=== PATIENT | male | born 1945 | race African-American/Black ===

== ENCOUNTER 2018-10-12 14:55 | Inpatient (IN) | payer MEDICARE ==
[~2018-10-12] VITALS: Ht 172.7 cm; Wt 67.1 kg
[2018-10-12 16:36] LABS: BASOPHILS % (AUTO) 0.7 % (0.0-2.0); EOSINOPHILS % (AUTO) 0.9 % (0.0-7.0); HEMATOCRIT 43.6 % (36.7-47.1); HEMOGLOBIN 14.6 g/dL (12.5-16.3); LYMPHOCYTES # (AUTO) 0.6 K/uL (20.0-40.0); LYMPHOCYTES % (AUTO) 14.6 % (20.5-51.5); MEAN CORPUSCULAR HEMOGLOBIN 32.9 uug (23.8-33.4); MEAN CORPUSCULAR HGB CONC 33 g/dL (32.5-36.3); MEAN CORPUSCULAR VOLUME 98.5 fL (73.0-96.2); MONOCYTES # (AUTO) 0.3 K/uL (2.0-10.0); MONOCYTES % (AUTO) 8.3 % (0.0-11.0); NEUTROPHILS % (AUTO) 75.5 % (38.5-71.5); PLATELET COUNT (AUTO) 143 K/uL (152-348); RED BLOOD CELL COUNT(AUTO) 4.43 MIL/uL (4.06-5.63)
[2018-10-12 16:44] LABS: CARBON DIOXIDE 29 mmol/L (21-32); CHLORIDE 105 mmol/L (98-107); CREATININE 1.3 mg/dL (0.6-1.3); ETHANOL < 3 MG/DL (0-0); GLUCOSE 93 mg/dL (74-106); POTASSIUM 3.5 mmol/L (3.5-5.1); UREA NITROGEN, BLOOD 33 mg/dL (7-18)
--- NOTE | 2018-10-12 16:46 | NUR ---
PT VERY AGITATED, CONFUSED, TRIES TO LEAVE THE ER INSPITE OF THE REORIENTATION AND COMFORT MEASURES PROVIDED. CALLED SUMA STRAUSS
--- NOTE | 2018-10-12 16:47 | NUR ---
PT REFUESED TO GO CT. ALREADY TRIED TO CONVINCE, UNSUCCESSFUL.
[2018-10-12 16:58] LABS: ALANINE AMINOTRANSFERASE 47 U/L (16-63); ALKALINE PHOSPHATASE 90 U/L (50-136); ASPARTATE AMINOTRANSFERASE 73 U/L (15-37); BILIRUBIN,DIRECT 0.2 mg/dL (0.0-0.2); BILIRUBIN,TOTAL 0.7 mg/dL (0.2-1.0)
[2018-10-12 16:59] LABS: ACETAMINOPHEN < 2.0 ug/mL (10-30)
[2018-10-12 17:00] LABS: THYROID STIMULATING HORMONE 5.434 mIU/mL (0.358-3.740)
[2018-10-12] MEDS ORDERED: HALOPERIDOL LACTATE 5 MG/1 ML VIAL IM ONE (17:30)
[2018-10-12] MEDS ORDERED: diphenhydrAMINE 50 MG/1 ML VIAL IM ONE (17:30)
[2018-10-12] MEDS ORDERED: LORAZEPAM 2 MG/1 ML VIAL IM ONE (17:30)
--- NOTE | 2018-10-12 17:44 | NUR ---
CODE STRAUSS CLEARED.
--- NOTE | 2018-10-12 18:46 | NUR ---
PT RESTING,AROUSABLE, VSS, ONE TO ONE SITTER AT BED TIME THE WHOLE ER STAY,
[2018-10-12] MEDS ORDERED: LORAZEPAM 2 MG/1 ML VIAL ONE (19:20)
[2018-10-12] MEDS ORDERED: diphenhydrAMINE 50 MG/1 ML VIAL ONE (19:20)
[2018-10-12] MEDS ORDERED: HALOPERIDOL LACTATE 5 MG/1 ML VIAL ONE (19:20)
--- NOTE | 2018-10-12 20:53 | NUR ---
Pt. admitted to TELE, under care of Dr. GRIGGS Belongs List completed
[2018-10-12 21:30] VITALS: BP 100/48
--- NOTE | 2018-10-12 21:30 | NUR ---
ADMITTED 73M DX: AMS/ACS. PATIENT WAS ABLE TO AMBULATE TO BED WITH 2 PERSON ASSIST. WAS UNABLE TO OBTAIN ANY HISTORY DURING ASSESSMENT DUE TO MENTAL STATUS AND PATIENT BEING LETHARGIC. SITTER IS AT BEDSIDE. IV HEPLOCK ON THE LEFT HAND IS INTACT. SAFETY MEASURES INITIATED. BED IS LOW AND LOCKED, CALL LIGHT WITHIN REACH. WILL CONTINUE TO MONITOR.
[2018-10-12] MEDS ORDERED: ONDANSETRON 4 MG/2 ML VIAL IV PRN (23:00)
[2018-10-12] MEDS ORDERED: HYDROCODONE/APAP 5-325MG TABLET PO PRN (23:00)
[2018-10-12] MEDS ORDERED: TEMAZEPAM 15 MG CAPSULE PO PRN (23:00)
[2018-10-12] MEDS ORDERED: MIRALAX 17 GM POWD.PACK PO PRN (23:00)
[2018-10-12] MEDS ORDERED: ACETAMINOPHEN 325 MG TABLET PO PRN (23:00)
[2018-10-13 04:00] VITALS: BP 107/67
[2018-10-13] MEDS: PANTOPRAZOLE SODIUM 40 MG TABLET.DR PO SCH (06:09)
--- NOTE | 2018-10-13 06:49 | NUR ---
PATIENT SLEPT MOST OF SHIFT. NO SIGNS OF ACUTE DISTRESS. WAS ABLE TO AMBULATE TO THE RESTROOM. STILL LETHARGIC AND UNABLE TO ANSWER QUESTIONS ABOUT PMH. SITTER AT BESIDE. SAFETY MEASURES GIVEN.
[2018-10-13 07:43] LABS: BASOPHILS % (AUTO) 0.2 % (0.0-2.0); EOSINOPHILS % (AUTO) 0.8 % (0.0-7.0); HEMATOCRIT 37.8 % (36.7-47.1); HEMOGLOBIN 12.9 g/dL (12.5-16.3); LYMPHOCYTES # (AUTO) 0.5 K/uL (20.0-40.0); LYMPHOCYTES % (AUTO) 14.2 % (20.5-51.5); MEAN CORPUSCULAR HEMOGLOBIN 33.3 uug (23.8-33.4); MEAN CORPUSCULAR HGB CONC 34 g/dL (32.5-36.3); MEAN CORPUSCULAR VOLUME 97.3 fL (73.0-96.2); MONOCYTES # (AUTO) 0.3 K/uL (2.0-10.0); MONOCYTES % (AUTO) 9.4 % (0.0-11.0); NEUTROPHILS # (AUTO) 2.8 K/uL (1.8-8.9); NEUTROPHILS % (AUTO) 75.4 % (38.5-71.5); PLATELET COUNT (AUTO) 125 K/uL (152-348); RED BLOOD CELL COUNT(AUTO) 3.88 MIL/uL (4.06-5.63); WHITE BLOOD COUNT (AUTO) 3.7 K/uL (3.6-10.2)
[2018-10-13] MEDS ORDERED: TEMAZEPAM 7.5 MG CAPSULE PO PRN (07:45)
--- NOTE | 2018-10-13 08:00 | NUR ---
Pt waking up. Pt still groggy but pt alert and oriented x 4. Sitter at bedside for 1:1 2nd to 5150. Awaiting psych consult. Tele SNR. Call light is within reach.
[2018-10-13 08:50] LABS: ALANINE AMINOTRANSFERASE 33 U/L (16-63); ALKALINE PHOSPHATASE 69 U/L (50-136); ASPARTATE AMINOTRANSFERASE 48 U/L (15-37); BILIRUBIN,TOTAL 1.1 mg/dL (0.2-1.0); CARBON DIOXIDE 30 mmol/L (21-32); CHLORIDE 107 mmol/L (98-107); CHOLESTEROL 184 mg/dL (<200); CREATININE 1.1 mg/dL (0.6-1.3); GLUCOSE 86 mg/dL (74-106); HDL CHOLESTEROL 86 mg/dL (40-60); POTASSIUM 3.8 mmol/L (3.5-5.1); TOTAL PROTEIN, SERUM 6.2 g/dL (6.4-8.2); TRIGLYCERIDES 28 MG/DL (30-150); UREA NITROGEN, BLOOD 27 mg/dL (7-18)
[2018-10-13] MEDS: ASPIRIN EC 325 MG TABLET.DR PO SCH (09:05)
--- NOTE | 2018-10-13 16:00 | NUR ---
No renewal on HOLD per psychiatry.
[2018-10-13 16:48] LABS: *BILIRUBIN,URIN NEGATIVE (NEGATIVE); *BLOOD, URINE NEGATIVE (NEGATIVE); *CLARITY,URINE CLEAR (CLEAR); *COLOR,URINE DARK YELLOW (YELLOW); *KETONES,URINE TRACE (NEGATIVE); LEUKOCYTE ESTERASE ,URINE NEGATIVE (NEGATIVE); NITRITE, URINE NEGATIVE (NEGATIVE); UGLUCOSE NEGATIVE (NEGATIVE)
[2018-10-13 17:14] LABS: BACTERIA,URINE FEW /HPF (NONE SEEN); RBC,URINE 0-3 /HPF (0-3); SQUAMOUS EPITHELIAL CELL,UR FEW /HPF (NONE SEEN)
[2018-10-13 17:18] LABS: *AMPHETAMINE, URINE NEGATIVE (NEGATIVE); *BARBITURATE, URINE NEGATIVE (NEGATIVE); *CANNABINOID, URINE NEGATIVE (NEGATIVE); *COCCAINE, URINE NEGATIVE (NEGATIVE); *OPIATE, URINE POSITIVE (NEGATIVE); *PHENCYCLIDINE SCREEN,URINE NEGATIVE (NEGATIVE)
[2018-10-13 19:04] VITALS: BP 97/54
[2018-10-13 20:16] VITALS: BP 99/57
[2018-10-13] MEDS ORDERED: DOCUSATE SODIUM 100 MG CAPSULE PO SCH (21:00)
[2018-10-13] MEDS ORDERED: DOCUSATE SODIUM 250 MG CAPSULE PO SCH (21:00)
[2018-10-14 04:00] VITALS: BP 125/57
[2018-10-14] MEDS: PANTOPRAZOLE SODIUM 40 MG TABLET.DR PO SCH (06:26)
[2018-10-14 06:46] LABS: BASOPHILS % (AUTO) 0.4 % (0.0-2.0); EOSINOPHILS # (AUTO) 0.1 K/uL (0.0-0.7); EOSINOPHILS % (AUTO) 2.1 % (0.0-7.0); HEMATOCRIT 37.8 % (36.7-47.1); HEMOGLOBIN 12.9 g/dL (12.5-16.3); LYMPHOCYTES # (AUTO) 0.7 K/uL (20.0-40.0); LYMPHOCYTES % (AUTO) 21.4 % (20.5-51.5); MEAN CORPUSCULAR HGB CONC 34 g/dL (32.5-36.3); MONOCYTES # (AUTO) 0.4 K/uL (2.0-10.0); MONOCYTES % (AUTO) 12.2 % (0.0-11.0); NEUTROPHILS # (AUTO) 2.1 K/uL (1.8-8.9); NEUTROPHILS % (AUTO) 63.9 % (38.5-71.5); PLATELET COUNT (AUTO) 115 K/uL (152-348); RED BLOOD CELL COUNT(AUTO) 3.89 MIL/uL (4.06-5.63); WHITE BLOOD COUNT (AUTO) 3.3 K/uL (3.6-10.2)
[2018-10-14 07:03] LABS: CARBON DIOXIDE 31 mmol/L (21-32); CHLORIDE 108 mmol/L (98-107); GLUCOSE 90 mg/dL (74-106); PHOSPHOROUS 2.3 mg/dL (2.5-4.9); POTASSIUM 4.9 mmol/L (3.5-5.1); UREA NITROGEN, BLOOD 25 mg/dL (7-18)
[2018-10-14 07:08] LABS: CREATININE 1.2 mg/dL (0.6-1.3)
[2018-10-14] MEDS: ASPIRIN EC 325 MG TABLET.DR PO SCH (08:12)
[2018-10-14 11:26] VITALS: BP 115/65
[2018-10-14] MEDS ORDERED: CEphaleXIN 500 MG CAPSULE PO SCH (14:00)
[2018-10-14] MEDS ORDERED: NEUTRA PHOS PACKET PO ONE (15:15)
[2018-10-14 15:30] VITALS: BP 117/56
--- NOTE | 2018-10-14 18:01 | NUR ---
patient placed on [address] [place] [facility] [place]
[2018-10-14] MEDS ORDERED: ASPI-612 PO (20:39)
[2018-10-14] MEDS ORDERED: CEPH500T PO (20:39)
[2018-10-14] MEDS ORDERED: DOCU-141 PO (20:45)
[2018-10-14] MEDS ORDERED: POLY17PO4 PO (20:45)
[2018-10-14] MEDS ORDERED: DONE5TAB7 PO (20:45)
[2018-10-14] MEDS ORDERED: HYDR-3326 PO (20:45)
[2018-10-14] MEDS ORDERED: PANT40TA2 PO (20:45)
[2018-10-14] MEDS ORDERED: DONEPEZIL 5 MG TABLET PO SCH (21:00)
== END 2018-10-14 18:37 | DRG 689 ==
LOC: ER 14:55 → TELE 20:49 → MED 10-13 21:40
PROVIDERS: ADMIT Internal Medicine; ATTEND Internal Medicine
DX: N39.0 Urinary tract infection, site not specified (principal); N17.0 Acute kidney failure with tubular necrosis; G93.41 Metabolic encephalopathy; F03.91 Unspecified dementia, unspecified severity, with behavioral disturbance; E03.9 Hypothyroidism, unspecified; R60.0 Localized edema; Z91.83 Wandering in diseases classified elsewhere; R00.1 Bradycardia, unspecified; F99 Mental disorder, not otherwise specified; R74.8 Abnormal levels of other serum enzymes
CPT/HCPCS: 36415; 70030-TC; 70450; 71045; 80307; 83605; 83735; 83921; 84100; 84443; 85025; 85730; 87040; 93005; 93307; 97116; 97530; A4663; G0378; G0480; G0480-TC; J1200; J1630; J2060

== ENCOUNTER 2018-10-14 19:24 | Inpatient (IN) | payer MEDICARE ==
[~2018-10-14] VITALS: Ht 172.7 cm; Wt 65.8 kg
[2018-10-14 20:00] VITALS: BP 116/61
[2018-10-14] MEDS ORDERED: CEPH500T PO (20:39)
[2018-10-14] MEDS ORDERED: ASPI-612 PO (20:39)
[2018-10-14] MEDS ORDERED: POLY17PO4 PO (20:45)
[2018-10-14] MEDS ORDERED: HYDR-3326 PO (20:45)
[2018-10-14] MEDS ORDERED: PANT40TA2 PO (20:45)
[2018-10-14] MEDS ORDERED: DONE5TAB7 PO (20:45)
[2018-10-14] MEDS ORDERED: DOCU-141 PO (20:45)
[2018-10-14] MEDS ORDERED: ACETAMINOPHEN 325 MG TABLET PO PRN (21:00)
[2018-10-14] MEDS ORDERED: MAG HYDROX/AL HYDROX/SIMETH 30 ML LIQUID UDC PO PRN (21:00)
[2018-10-14] MEDS ORDERED: DONEPEZIL 5 MG TABLET PO SCH (21:00)
[2018-10-14] MEDS ORDERED: MAGNESIUM HYDROXIDE 30 ML LIQUID UDC PO PRN (21:00)
[2018-10-14] MEDS: CEphaleXIN 500 MG CAPSULE PO SCH (21:55)
[2018-10-14] MEDS: DOCUSATE SODIUM 100 MG CAPSULE PO SCH (21:55)
[2018-10-14] MEDS: TEMAZEPAM 7.5 MG CAPSULE PO PRN (21:55)
--- NOTE | 2018-10-14 22:00 | NUR ---
ADMISSION NOTES: Pt ARRIVED TO UNIT AT 1845, PRIOR TO CHANGE OF SHIFT. ADMITTED THIS 73 Y.O. -ZIMBABWEAN MALE, BROUGHT TO MHU FROM [facility]ND [facility]LOOR [facility] VIA WHEELCHAIR, ACCOMPANIED BY UNIT NURSING STAFF. Pt ON A 5250 HOLD FOR GRAVE DISABILITY. Pt WAS ORIGINALLY ON A 5150 HOLD PRIOR TO MHU ADMISSION. ACCORDING TO THE HOLD, "Pt WAS WAS WANDERING THE STREETS WHEN A CHART WRITER APPROACHED HIM. Pt WAS DISORIENTED AND CONFUSED, AND UNABLE TO STATE WHERE HE LIVES." Pt WAS BROUGHT TO ER AND ADMITTED TO [facility] FLOOR DUE TO AN ELEVATED TROPONIN LEVEL. Pt IS NOW MEDICALLY CLEARED TO BE ADMITTED TO THE MENTAL HEALTH UNIT. UPON FACE TO FACE ASSESSMENT, Pt APPEARS TO REFLECT WHAT IS ON THE HOLD. Pt IS ONLY ORIENTED TO NAME, BUT CONFUSED, DISORIENTED, AND HAS NO INSIGHT REGARDING HOSPITALIZATION. Pt THINKS HE IS NOT IN THE HOSPITAL AND IS REQUESTING TO LEAVE TO "OYSTER WASHER HIS PARENTS FROM THE [place]." Pt IS UNABLE TO PROVIDE INFORMATION DURING ADMISSION PROCESS, AND UNABLE TO SIGN ADMISSION FORMS. Pt IS A POOR HISTORIAN AND UNABLE TO PROVIDE AN EMERGENCY CONTACT OR PRIOR LIVING SITUATION. Pt IS CONSTANTLY WALKING AROUND THE UNIT, GOING INTO OTHER Pt ROOMS, AND REQUIRES FREQUENT REDIRECTION. DR. WALKER IS AWARE OF ADMISSION, ORDERS RECEIVED. Pt GIVEN RESTORIL FOR SLEEP, AND ATIVAN FOR ANXIETY, BOTH WITH GOOD EFFECT. Pt IS MED COMPLIANT, NO AGGRESSIVE OR VIOLENT BEHAVIORS NOTED. ORIENTED TO UNIT RULES AND ROOM, CONTRABAND PLACED IN UNIT LOCKER. EMPHASIZED SAFETY, ENCOURAGED Pt TO CALL FOR ASSISTANCE WHENEVER NEEDED TO PREVENT ANY INJURIES WHILE IN THE HOSPITAL.
[2018-10-14] MEDS: LORAZEPAM 0.5 MG TABLET PO PRN (23:40)
[2018-10-15] MEDS: LORAZEPAM 0.5 MG TABLET PO PRN (04:30)
[2018-10-15] MEDS: CEphaleXIN 500 MG CAPSULE PO SCH ×3 (06:34→21:01)
[2018-10-15 07:30] VITALS: BP 109/63
[2018-10-15 07:39] LABS: CARBON DIOXIDE 29 mmol/L (21-32); CHLORIDE 102 mmol/L (98-107); CREATININE 1.1 mg/dL (0.6-1.3); GLUCOSE 104 mg/dL (74-106); MAGNESIUM 2.3 mg/dL (1.8-2.4); PHOSPHOROUS 2.9 mg/dL (2.5-4.9); POTASSIUM 4.3 mmol/L (3.5-5.1); UREA NITROGEN, BLOOD 25 mg/dL (7-18)
[2018-10-15] MEDS: ASPIRIN 325 MG TABLET PO SCH (08:09)
[2018-10-15] MEDS: PANTOPRAZOLE SODIUM 40 MG TABLET.DR PO SCH (08:09)
[2018-10-15 09:16] LABS: BASOPHILS % (AUTO) 0.5 % (0.0-2.0); HEMATOCRIT 40.5 % (36.7-47.1); HEMOGLOBIN 13.6 g/dL (12.5-16.3); LYMPHOCYTES # (AUTO) 0.8 K/uL (20.0-40.0); LYMPHOCYTES % (AUTO) 16.8 % (20.5-51.5); MEAN CORPUSCULAR HGB CONC 34 g/dL (32.5-36.3); MONOCYTES # (AUTO) 0.5 K/uL (2.0-10.0); MONOCYTES % (AUTO) 11.7 % (0.0-11.0); NEUTROPHILS # (AUTO) 3.1 K/uL (1.8-8.9); PLATELET COUNT (AUTO) 151 K/uL (152-348); RED BLOOD CELL COUNT(AUTO) 4.13 MIL/uL (4.06-5.63); WHITE BLOOD COUNT (AUTO) 4.5 K/uL (3.6-10.2)
[2018-10-15 16:00] VITALS: BP 117/40
[2018-10-15 20:14] VITALS: BP 121/57
[2018-10-15] MEDS: DOCUSATE SODIUM 100 MG CAPSULE PO SCH (20:57)
[2018-10-15] MEDS: QUETIAPINE FUMARATE 25 MG TABLET PO SCH (20:58)
--- NOTE | 2018-10-15 22:30 | NUR ---
Patient refused all 2100 and 2200 medications (Colace 200 mg cap, Seroquel 25 mg tab, and Keflex 500 mg cap). Tried to give him medication multiple times, still refused. Risk and benefits explained. All medications returned. Continue to monitor
[2018-10-16] MEDS ORDERED: LORAZEPAM 2 MG/1 ML VIAL IV ONE (02:20)
[2018-10-16] MEDS ORDERED: HALOPERIDOL LACTATE 5 MG/1 ML VIAL IM ONE (02:20)
--- NOTE | 2018-10-16 02:40 | NUR ---
Patient was agitated, restless, walking around, and going to other rooms. Refused to have any oral pills. Dr. Hardin was informed about the patient's situation. Received new orders of Haloperidol 2 mg IM injection and Ativan 1 mg IM injection. New orders administered. Patient fell in sleep. Continue to monitor.
--- NOTE | 2018-10-16 03:35 | NUR ---
Chemical Restraint Note: Pt wandering around the unit attempting to AWOL the unit by constantly banging on the door, pushing the lever, and attempting to leave. Pt is delusional and believes he is "waiting for his bus to go home." Pt then attempted to go into other patient's rooms despite instructions to remain in the common area or his own room. Pt refused scheduled HS medications x2, stating "I've had enough pills already." Pt refused prn, and became increasingly uncooperative and combative with staff when redirected. Dr Hardin notified of Pt behavior and Haldol 2mg and Ativan 1 mg IM ordered and administered with staff and security present. Medication administered without incident, no injury sustained to Pt or staff. Pt currently resting in bed breathing even and unlabored, no s/s of acute physical distress, will continue to monitor. .
[2018-10-16] MEDS: CEphaleXIN 500 MG CAPSULE PO SCH ×3 (06:00→22:00)
--- NOTE | 2018-10-16 06:10 | NUR ---
Patient refused morning medication (Keflex 500 mg cap). Risks and benefits explained. Continue to monitor.
[2018-10-16 07:30] VITALS: BP 118/60
[2018-10-16] MEDS: ASPIRIN 325 MG TABLET PO SCH ×2 (08:53→09:42)
[2018-10-16] MEDS: PANTOPRAZOLE SODIUM 40 MG TABLET.DR PO SCH ×2 (08:53→09:42)
--- NOTE | 2018-10-16 12:24 | NUR ---
Gps/Certified Pharmacy Technician-Pacing back and forth the hallway, not interactive, at times noted staring spells. Confused, , needed redirections from time to time, noted standing by the door, looking outside, pushing doors, monitor safety, awaol risk.
[2018-10-16 15:21] VITALS: BP 100/64
--- NOTE | 2018-10-16 15:42 | NUR ---
Firearms report: cinder crew worker completed and submitted a [employer] firearms report for a 5250 GD certification.
[2018-10-16 20:27] VITALS: BP 111/62
[2018-10-16] MEDS: DOCUSATE SODIUM 100 MG CAPSULE PO SCH (21:00)
[2018-10-16] MEDS: QUETIAPINE FUMARATE 25 MG TABLET PO SCH (21:00)
--- NOTE | 2018-10-16 22:09 | NUR ---
Received pt ambulating in the hallway. No acute distress noted. No c/o pain or discomfort. Pt refused his medications. Risks and benefits explained x3, still refused. Denies S/I. Safety measures maintained. Will continue to monitor.
[2018-10-17] MEDS: CEphaleXIN 500 MG CAPSULE PO SCH ×3 (06:00→22:00)
[2018-10-17 07:30] VITALS: BP 130/74
[2018-10-17] MEDS: PANTOPRAZOLE SODIUM 40 MG TABLET.DR PO SCH (09:00)
[2018-10-17] MEDS: ASPIRIN 325 MG TABLET PO SCH (09:00)
[2018-10-17 16:00] VITALS: BP 118/52
[2018-10-17 19:57] VITALS: BP 104/44
[2018-10-17] MEDS: QUETIAPINE FUMARATE 25 MG TABLET PO SCH (20:18)
[2018-10-17] MEDS: DOCUSATE SODIUM 100 MG CAPSULE PO SCH (20:18)
[2018-10-18] MEDS: CEphaleXIN 500 MG CAPSULE PO SCH ×3 (06:00→21:36)
--- NOTE | 2018-10-18 06:34 | NUR ---
GPS: REMAIN UNCOOPERATIVE WITH MEDICATIONS AND CARE. WONDERING AROUND IN THE HALLWAY. REFUSED SLEEPING MEDICATION. NO AGITATION NOTED. REMAIN AWAKE THROUGH THE NIGHT. CONTINUE MONITORING FOR SAFETY.
[2018-10-18] MEDS: ASPIRIN 325 MG TABLET PO SCH ×2 (08:23→09:00)
[2018-10-18] MEDS: PANTOPRAZOLE SODIUM 40 MG TABLET.DR PO SCH ×2 (08:24→09:00)
--- NOTE | 2018-10-18 17:59 | NUR ---
patient has been wandering around in hallway ,refused all am medication ,redirection at all time .will continue close monitoring.
[2018-10-18 20:18] VITALS: BP 110/68
[2018-10-18] MEDS: DOCUSATE SODIUM 100 MG CAPSULE PO SCH (21:00)
[2018-10-18] MEDS: QUETIAPINE FUMARATE 25 MG TABLET PO SCH (21:00)
--- NOTE | 2018-10-18 21:37 | NUR ---
Remains refusing all of his medication and wandering in peers rooms.
[2018-10-19] MEDS: CEphaleXIN 500 MG CAPSULE PO SCH ×3 (05:25→21:04)
--- NOTE | 2018-10-19 05:26 | NUR ---
Awake to activity room given am dose Keflex. Refused to take a shower.
[2018-10-19 07:30] VITALS: BP 113/61
[2018-10-19] MEDS: ASPIRIN 325 MG TABLET PO SCH (10:04)
[2018-10-19] MEDS: PANTOPRAZOLE SODIUM 40 MG TABLET.DR PO SCH (10:06)
--- NOTE | 2018-10-19 14:00 | NUR ---
received patient awake , walking in the hallway, compliant to medication, denies pain, kept comfortable at all times, on non skid socks for safety, continue monitor patient
[2018-10-19 15:34] VITALS: BP 113/55
[2018-10-19] MEDS: DOCUSATE SODIUM 100 MG CAPSULE PO SCH (21:03)
[2018-10-19] MEDS: QUETIAPINE FUMARATE 25 MG TABLET PO SCH (21:04)
[2018-10-19] MEDS: LORAZEPAM 0.5 MG TABLET PO PRN (21:46)
[2018-10-19] MEDS: TEMAZEPAM 7.5 MG CAPSULE PO PRN (23:32)
--- NOTE | 2018-10-20 04:27 | NUR ---
Patient received walking in the hallway, AAO x1, confused. No sign of acute distress or SOB was noted. Complaint with medication. Patient was agitated and restless, Ativan 0.5 mg tab given at 2146, effective. Has trouble falling sleep, started walking around, Restoril 7.5 mg tab given at 2332, effective. All medication given and well tolerated. Safety measures maintained. Will continue to monitor and endorse to the day shift nurse accordingly.
[2018-10-20] MEDS: CEphaleXIN 500 MG CAPSULE PO SCH ×2 (06:06→13:26)
[2018-10-20 07:30] VITALS: BP 118/60
[2018-10-20] MEDS: ASPIRIN 325 MG TABLET PO SCH (09:51)
[2018-10-20] MEDS: PANTOPRAZOLE SODIUM 40 MG TABLET.DR PO SCH (09:51)
--- NOTE | 2018-10-20 13:22 | NUR ---
Discharge Planning: picking table worker has sent fax referral to [facility] [ ; ] for admission review. picking table worker awaiting call back from academic affairs coordinator
--- NOTE | 2018-10-20 14:07 | NUR ---
DISCHARGE NOTE: Patient will be discharged to [facility] [[id number] [place] [address]; ] via ambulance transportation at 4:00pm. Please arrange ambulance transportation for this patient. cement worker has spoken with claims coordinator, Swetha, at facility who states they are ready to accept the patient today to room 27B. Patient does not have a person to notify listed nor was he able to provide information of any family members/friends due to impaired mental status. Patient is alert and oriented x1-2, denies SI/HI, and is aware and agreeable with discharge plans. Patient will follow-up with Dr. Lazo (Wedding Planner) and Dr. Medina (psychiatrist). Patient has been provided with outpatient mental health resources to [facility] [ ], [facility] [ ], and the National Suicide Prevention Lifeline [ ]. Patient has signed the homeless consent form and a copy has been placed in patient chart.
--- NOTE | 2018-10-20 16:57 | NUR ---
Patient has been discharged. Patient has been transferred, via ambulance, to [facility]. patient has received exit care package along with valuables and belongings. Patient is in stable condition and denies any pain/discomfort at this time. Patient verbalized "ready to leave" prior to discharge. Patient is compliant with medical decisions and treatment. Nursing facility has been notified and report was given to CHUNG Storey.
== END 2018-10-20 17:00 | DRG 885 ==
LOC: GPS 19:24
PROVIDERS: ADMIT Psychiatry & Neurology Psychiatry; ATTEND Internal Medicine
DX: F29 Unspecified psychosis not due to a substance or known physiological condition (principal); N17.0 Acute kidney failure with tubular necrosis; G93.41 Metabolic encephalopathy; F03.91 Unspecified dementia, unspecified severity, with behavioral disturbance; N39.0 Urinary tract infection, site not specified; I67.82 Cerebral ischemia; Z91.83 Wandering in diseases classified elsewhere; E03.9 Hypothyroidism, unspecified; R00.1 Bradycardia, unspecified
CPT/HCPCS: 36415; 83735; 83921; 84100; 85025; J1630; J2060